=== PATIENT | female | born 1955 | race Caucasian/White ===

== ENCOUNTER → 2016-09-14 | Outpatient (CLI) | payer OTHER ==
[~2016-09-14] VITALS: Ht 160 cm; Wt 81.6 kg
[~2016-09-14] MED LIST: ALEVE220 MG PO; CELEBREX 200 M200 M1; CELEBREX 200 M200 M1 PO; CELEBREX 200 M200 MG PO; CENTRUM SILVER1 EAC4 PO; HCG INJECTION; NEURONTIN 300300 M1 PO; PROGESTERONE200 MG PO; TRAMADOL 50 MG50 MG PO; VALTREX 500 MG500 M1 PO
--- NOTE | ~2016-09-14 | HPC ---
[facility] [place] [address] PAIN MANAGEMENT CONSULTATION Name: CEASAR BHAKTA Room #: REG OKSANAHao Keyes#: [id number] Admission: 09/14/16 Attend Phys: Nishant Bucio MD Discharge: Date of : 59 Report #: [id number] THIS REPORT FOR: //name// CC: Jarad Bucio DATE OF SERVICE: 09/14/2016 DATE OF REGISTRATION: 09/14/2016 Followup visit for low back pain with radiculopathy. The patient has an L4-L5 subluxation/spondylolisthesis and has neural foraminal narrowing and pain, which also results in radicular symptoms of numbness and weakness into lower extremities. She has responded nicely to epidural injections performed at the L4-L5 level. We reviewed her MRI scan today and her previous injections. She would like another epidural injection. Pain today is 10/10, worse with standing, walking, weightbearing and improved with lying down. She has pain that radiates through the right hip and down into the leg. MEDICATIONS: Celebrex has been helpful. I will renew that prescription for her today. PAST MEDICAL HISTORY: Positive for 90% improvement for up to 2-1/2 months following epidural injection. PHYSICAL EXAMINATION: She is a pleasant 61-year-old. Blood pressure is 109/52, heart rate 72. BMI is 31.5. She is able to move from sitting to standing position and ambulate without difficulty. Straight leg raising is positive. Pain radiates almost exquisitely into the right L5 distribution. Sensation and strength are intact. IMPRESSION: Low back pain with radiculopathy of the L5 nerve root on right. L4-L5 subluxation/spondylolisthesis. PLAN: 1. I reviewed the importance of regular exercise. 2. Celebrex 200 mg as needed. Side effects reviewed. 3. Lumbar epidural injection at L4-L5. PROCEDURE: Lumbar epidural steroid injection. PROCEDURE NOTE: After both written and informed consent to include risk of spinal cord damage, increased pain, weakness and dural puncture, the patient was [address] [address] PAIN MANAGEMENT CONSULTATION Name: LIVIACEASAR Room #: REG ANDER Keyes#: [id number] Admission: 09/14/16 Attend Phys: Nishant Bucio MD Discharge: Date of : 59 Report #: [id number] taken to the fluoroscopy suite, placed in the prone position. After sterile prep and drape, a skin wheal with lidocaine was raised. A 22-gauge epidural Tuohy needle was inserted in the midline at L4-L5 with good loss to resistance. Negative aspiration for cerebrospinal fluid or blood was noted. Then 1 mL of Omnipaque under biplanar fluoroscopy showed good spread within the epidural space. This was followed with 3 mL of 0.5% lidocaine mixed with 80 mg of triamcinolone was then injected to flush the needle; it was removed. The patient was monitored for an appropriate period of time and discharged in good and stable condition. She tolerated the procedure well. Followup visit as needed. By: [id number] Nishant Bucio MD /nt
[2016-09-14 12:42] VITALS: BP 112/60
== END | disposition home or self-care (01) ==
LOC: PAIN
DX: M54.16 Radiculopathy, lumbar region (principal); M43.16 Spondylolisthesis, lumbar region

== ENCOUNTER → 2016-12-28 | Outpatient (CLI) | payer OTHER ==
[~2016-12-28] VITALS: Ht 160 cm; Wt 84.7 kg
[~2016-12-28] MED LIST changes: +ULTRAM 50MG TAB50 MG PO
--- NOTE | ~2016-12-28 | HPC ---
[facility] [address] [place] [address] PAIN MANAGEMENT CONSULTATION Name: CEASAR BHAKTA Room #: REG ANDRE Estiven.#: [id number] Admission: 12/28/16 Attend Phys: Nishant Bucio MD Discharge: Date of : 59 Report #: [id number] THIS REPORT FOR: //name// CC: SEBASTIAN CANTRELL MD [facility] physician/PCP Nishant Bucio DATE OF SERVICE: 12/28/2016 Followup visit for low back pain with radiculopathy. The patient returns to the pain clinic today. She would like another epidural injection. The record will reflect that she has responded very nicely to these injections dating back to 2013. We have been conservative in their use. She had cervical radiculopathy, which was treated successfully over a period of about 1 year and that cervical pain is now resolved. Beginning about a year ago, she began experiencing lumbar radiculopathy into both legs. She had an injection in February 2016 and June 2016 and one in September 2016, each time the injections providing up to 60% relief for 2-1/2 months at least. She has been continuing to try and do exercises, physical therapy in order to alleviate her pain. She also takes pain medications, Celebrex 200 mg daily has been useful. She does not take opioids, although she has had tramadol in the past. The patient has come to the clinic today hoping to repeat another epidural injection to help her get through the summer. She had no problems coming in and receiving the injection on the same day of her visit in the past. It should be noted that when she came to the clinic today, her pain was very severe and she was surprised and very discouraged when she was told that her insurance company would not authorize her injection. She spent an additional hour in the clinic while she and her both adamantly requested that we pursue preauthorization today. My staff spent a good deal of time on the phone. Other patients were made to wait while we went through this process. Finally I also spoke with someone on the phone. She was relaying information to the clinical nurse specialist at the other end, but I was unable to speak to the clinical nurse specialist, I could only speak to the cna ltc speaking with my staff. I left them know that this was a hardship for everyone involved, had created quite a disruption in our morning schedule in the office and I felt that it was unreasonable for them to create such difficulties for procedure, which had shown great benefit for her in the past. They ultimately agreed to allow us ____ today with the injection. On physical exam, her pain score is 9/10. She has pain with moving, standing and walking. Pain is in her hips, radiates bilaterally down the posterior aspect of the legs with straight leg raising. Sensation and strength are adequate. [address] [address] PAIN MANAGEMENT CONSULTATION Name: CEASAR BHAKTA Room #: REG CLHao Keyes#: [id number] Admission: 12/28/16 Attend Phys: Nishant Bucio MD Discharge: Date of : 59 Report #: [id number] X-rays have shown significant facet arthropathy at L4-L5 with grade 1 subluxation. There is a transitional vertebrae suspected at L5. There is some degree of disk space narrowing at several levels, but no acute bony changes seen. IMPRESSION AND PLAN: Low back pain with radiculopathy. I also feel that there may possibly be a fair amount of referred pain from the lumbar facet joints. I discussed this with the patient. A different algorithm and treatment would be in place if we were to treat the facet joints. This would include a median branch nerve block followed by radiofrequency ablation. This is a much more laborious and expensive procedure for the insurance company. I would consider it if she did not receive such a good response to epidural injections, suggesting that there is also some radicular component to the pain. We will see how she does with this injection and make further decision going forward. After approval, she was taken to the fluoroscopic suite for treatment. PROCEDURE: The patient was placed prone, skin prepped with ChloraPrep. Skin anesthetized over the L4-L5 interspace. A 20-gauge Tuohy epidural needle advanced first attempt into the epidural space with loss of resistance. No blood or CSF aspirated. 1 mL of Omnipaque was injected and excellent spread of dye was observed into the epidural space. It was then followed by 3 mL of 0.5% lidocaine mixed with 80 mg of triamcinolone. She tolerated the procedure well, was observed for 45 minutes and discharged. A new prescription for tramadol 50 mg, number 60 tablets with 2 refills was provided. She will trial a medication and call us if there are any problems. By: [id number] Nishant Bucio MD /nt
[2016-12-28 10:07] VITALS: BP 113/56
== END | disposition home or self-care (01) ==
LOC: PAIN 06:37
DX: M54.16 Radiculopathy, lumbar region (principal); G89.29 Other chronic pain; Z88.8 Allergy status to other drugs, medicaments and biological substances; Z98.890 Other specified postprocedural states

== ENCOUNTER → 2017-03-29 | Outpatient (CLI) | payer OTHER ==
[~2017-03-29] VITALS: Ht 160 cm; Wt 84.4 kg
[~2017-03-29] MED LIST changes: +ACETAMINOPHEN325 M1 PO
--- NOTE | ~2017-03-29 | HPC ---
[facility] [address] [place] [address] PAIN MANAGEMENT CONSULTATION Name: CEASAR BHAKTA Room #: REG ANDRE Estiven.#: [id number] Admission: 03/29/17 Attend Phys: Nishant Bucio MD Discharge: Date of : 59 Report #: [id number] THIS REPORT FOR: //name// CC: Jarad Jerez MD [facility] physician/PCP Nishant Bucio DATE OF SERVICE: 03/29/2017 Followup visit for persistent low back pain with radiation into the buttocks. HISTORY OF PRESENT ILLNESS: The patient returns to pain clinic today with her . She was last seen 3 months ago; at which time she received a lumbar epidural steroid injection. This was the third injection she has had in 1 year for treatment of low back pain with radiation into the buttocks and leg. We have been treating this as radiculopathy. She has responded nicely to the injections in the past with some sustained improvement lasting into the range of 3-4 months. She has x-ray evidence of L4-L5 grade 1 subluxation and a transitional vertebra L5. This results in some narrowing of the foramina at L3-L4 and at L4-L5. Also, noted significant facet change at L4-L5 at the level of her subluxation. We have entertained the diagnosis of lumbar facet pain with spondylosis and arthropathy with referred pain into the buttocks. The pain does not radiate into the calves and she has no numbness or tingling. We were pleased with the relief that she was receiving from the single simple epidural injections; however, her most recent injection provided less relief in the range of 50% and it only lasted about 3-4 weeks before returning to similar levels. She is here today to discuss further options. Today, her pain is an 8, it is bilateral low back radiating into the hip and the lateral aspect of her leg. Pain is fairly significant in midline. She describes it as a sharp and shooting. It is worse with standing and weightbearing. It is generally worse in the morning. It is definitely worsened by back extension and is unaffected by flexion. CURRENT TREATMENTS: Acetaminophen, tramadol as needed and Celebrex 200 mg daily. She is concerned about side effects of all medications. ALLERGIES: NIACIN. PAST MEDICAL HISTORY: Significant for some plastic surgeries and she has mitral valve prolapse with a slight murmur. PHYSICAL EXAMINATION: GENERAL: She is pleasant, frustrated a bit by her ongoing pain and limitations. [address] [address] PAIN MANAGEMENT CONSULTATION Name: CEASAR BHAKTA Room #: REG [facility] HospitalSusan#: [id number] Admission: 03/29/17 Attend Phys: Nishant Bucio MD Discharge: Date of : 59 Report #: [id number] VITAL SIGNS: Her blood pressure is 113/63, BMI is 33.0. MUSCULOSKELETAL: She moves easily from a sitting to standing position. She is able to walk without antalgic features. She is wearing foot ____ today. In the flexion position, her spine is nontender. In the extension position, she has pain across the lumbosacral segment. Pain is fairly well localized in the midline and extension radiates pain into the buttocks and down the posterior aspect of the legs. IMPRESSION: Low back pain with spondylosis. MRI evidence of L4-L5 subluxation and "significant facet changes at L4-L5 bilaterally." RECOMMENDATIONS: Now that she is having less relief from simple epidural injections, we discussed further options treating the facet changes and subluxation. Medial branch nerve blocks have been suggested. L5 dorsal ramus, L4 and L3 medial branch nerve blocks bilaterally should denervate the facet at L4-L5. This would give us diagnostic information in order to proceed with radiofrequency ablation. Two diagnostic blocks have been recommended by protocol. This was explained, risks and benefits and we have asked [facility] to preauthorize the procedure from diagnosis through for final treatment with bilateral radiofrequency ablation for these 3 nerve levels. The patient will follow up once we have received the go ahead. We have also discussed other treatment options. Because of her concerns of side effects from her medicines, I have presented the option of Limbrel, which is considered a "medical food with few to zero side effects." Information was provided. This is an additional option that would potentially provide relief of symptoms without the side effects concerning the patient and her . By: [id number] Nishant Bucio MD /nt
[2017-03-29 13:36] VITALS: BP 113/63
== END | disposition home or self-care (01) ==
LOC: PAIN 07:39
DX: M47.896 Other spondylosis, lumbar region (principal); M46.96 Unspecified inflammatory spondylopathy, lumbar region; Z98.890 Other specified postprocedural states; Z88.8 Allergy status to other drugs, medicaments and biological substances

== ENCOUNTER → 2017-04-26 | Outpatient (CLI) | payer OTHER ==
[~2017-04-26] VITALS: Ht 160 cm; Wt 86.6 kg
--- NOTE | ~2017-04-26 | HPC ---
[facility] [address] [place] [address] PAIN MANAGEMENT CONSULTATION Name: CEASAR BHAKTA Room #: REG ANDRE BrothersSusanLaureen.#: [id number] Admission: 04/26/17 Attend Phys: Nishant Bucio MD Discharge: Date of : 59 Report #: [id number] THIS REPORT FOR: //name// CC: Jarad Jerez MD [facility] physician/PCP Nishant Bucio DATE OF SERVICE: 04/26/2017 Follow up visit for lumbar spondylosis. After much discussion and explanation, the patient is here today for her first 2 diagnostic medial branch nerve blocks. Discussed the procedure in some detail. We reviewed her x-ray findings and would suggest that this pain may be spondylitic. Her pain is mostly across her low back, it is worsened by back extension, it is usually worse in the morning. She has significant facet changes that are seen on x-ray at L4-L5 with a grade 1 subluxation and a transitional vertebra suggested at L5. I have recommended that we perform diagnostic medial branch injections of L3-L4 medial branch and L5 dorsal ramus. Potential risks and benefits discussed and she is anxious to proceed today. She is on no blood thinners. ALLERGIES: To NIACIN. IMPRESSION: Low back pain with spondylosis related to subluxation of L4 on L5. RECOMMENDATION: Medial branch nerve blocks bilaterally, L5 dorsal ramus. PROCEDURE: After informed consent, the patient was taken to the fluoroscopic suite. She was placed prone, skin prepped with ChloraPrep. Skin was anesthetized first on the left overlying the L4-L5 transverse process and the sacral ala. Using careful guidance, I advanced a 25-gauge needle into position at the medial aspect of each transverse process, the location of the medial branch nerve, L4 transverse process corresponding with the L3 medial branch, L5 transverse process corresponding with the L4 medial branch, and the sacral ala the landmark for the L5 dorsal ramus. After negative aspiration at each location, I gently injected a total of 1 mL of 0.5% bupivacaine and the needles were removed. C-arm was moved to the right and injections were performed anesthetizing the medial branch nerves there again L3-L4 and L5 dorsal ramus. At the conclusion of the procedure, she was taken to recovery room, she had no complications. She was observed for roughly 1 hour. She was made to do [address] [address] PAIN MANAGEMENT CONSULTATION Name: LIVIACEASAR Room #: REG CL Stephy#: [id number] Admission: 04/26/17 Attend Phys: Nishant Bucio MD Discharge: Date of : 59 Report #: [id number] provocative maneuvers without any triggering of pain. She will return for a second diagnostic block in 1 week. By: [id number] Nishant Bucio MD /nt
[2017-04-26 08:52] VITALS: BP 123/63
== END | disposition home or self-care (01) ==
LOC: PAIN 06:53
DX: M47.816 Spondylosis without myelopathy or radiculopathy, lumbar region (principal); G89.29 Other chronic pain; S33.140A Subluxation of L4/L5 lumbar vertebra, initial encounter; Z88.3 Allergy status to other anti-infective agents; Z98.890 Other specified postprocedural states; Z79.899 Other long term (current) drug therapy; X58.XXXA Exposure to other specified factors, initial encounter; Y93.9 Activity, unspecified; Y92.9 Unspecified place or not applicable; Y99.9 Unspecified external cause status

== ENCOUNTER → 2017-05-13 | Outpatient (CLI) | payer OTHER ==
[~2017-05-13] VITALS: Ht 160 cm; Wt 85.3 kg
--- NOTE | ~2017-05-13 | HPC ---
[facility] [place] [place] [address] PAIN MANAGEMENT CONSULTATION Name: CEASAR BHAKTA Room #: REG [facility] MDonnie.#: [id number] Admission: 05/13/17 Attend Phys: Nishant Bucio MD Discharge: Date of : 59 Report #: [id number] THIS REPORT FOR: //name// CC: SEBASTIAN Bucio DATE OF SERVICE: 05/13/2017 Follow up for lumbar spondylosis. This is a second diagnostic injection for the patient who had a good response to her first diagnostic injections performed on 04/26/2017. She was last in recovery room for about 20 minutes and then was asked to perform provocative maneuvers. She was unable to produce pain. Pain was 0 at discharge and she is here today for her second diagnostic injection. If we have a similar response, we plan to proceed with radiofrequency ablation in the next 2-4 weeks. No other changes have occurred in her health history. She continues to use a hot tub, medication and exercise in an effort to alleviate pain. She has been using ____ Tylenol and tramadol and when the pain is severe, she also has Celebrex on hand, which she takes daily as needed. ALLERGIES: None. PHYSICAL EXAMINATION: BMI of 33. Blood pressure 114/57, heart rate 70, respirations 14. She has mild tenderness across her lumbosacral segment reproduced by back extension. X-rays demonstrate spondylitic changes as well as grade 1 subluxation and transitional vertebrae at L5-S1. Significant facet changes were seen primarily at L4-L5. PROCEDURE: Diagnostic medial branch blocks bilateral L3, L4 and bilateral dorsal ramus block. PROCEDURE NOTE: After informed consent, the patient was taken to fluoroscopic suite, placed prone, skin prepped with ChloraPrep. Skin anesthetized first on the left. A 25-gauge needle was advanced into position at the target points at the base of the superior articular process and the transverse process of L4 and L5. Skin was anesthetized also over the sacral ala. A 25-gauge needle was gently advanced on the first attempt into location and after negative aspiration, I injected each needle with 1 mL of 0.5% bupivacaine. [place] were removed. C-arm was moved to the right. Mirror imaging technique and injections were performed at the base of the superior articulating process and the transverse process of L4-L5 and at the sacral ala. [place] were positioned, [address] [address] PAIN MANAGEMENT CONSULTATION Name: CEASAR BHAKTA Room #: REG ANDRE Keyes#: [id number] Admission: 05/13/17 Attend Phys: Nishant Bucio MD Discharge: Date of : 59 Report #: [id number] aspiration negative and injection of 1 mL of 0.5% bupivacaine at each location. She was taken to recovery room for short observation and at this time is waiting for her provocative movements. We anticipate that she will see a similar response and we will proceed with radiofrequency ablation if the diagnosis is correct. <ELECTRONICALLY SIGNED> By: Nishant Bucio MD 05/19/17 1551 [id number] Nishant Bucio MD /nt
[2017-05-13 14:58] VITALS: BP 114/57
== END | disposition home or self-care (01) ==
LOC: PAIN 06:57
DX: M47.816 Spondylosis without myelopathy or radiculopathy, lumbar region (principal); G89.29 Other chronic pain; Z88.3 Allergy status to other anti-infective agents